=== PATIENT | male | born 1960 | race Caucasian/White ===

== ENCOUNTER 2016-11-15 10:51 | Inpatient (IN) | payer OTHER ==
[~2016-11-15] VITALS: Ht 172.7 cm; Wt 76.8 kg
[2016-11-15 11:09] VITALS: BP 126/83; PULSE 98; RESP 14; O2SAT 100
[2016-11-15 11:29] LABS: BASOPHILS % (AUTO) 0.1 % (0-3); EOSINOPHILS % (AUTO) 0.2 % (0-5); MONOCYTES % (AUTO) 1.9 % (4-12); Mean Corpuscular Hemoglobin 33.6 pg (27.0-35.0); Mean Corpuscular Volume 99.2 fL (81-100); Platelet Count 150 bil/L (150-400)
[2016-11-15 11:53] LABS: Magnesium 2.1 mg/dL (1.6-2.6)
--- NOTE | 2016-11-15 13:24 | ED.REPORT ---
HPI-Dizziness / Weakness Date of Service Nov 15, 2016 ED Provider: Clint HeCecilia Is a 56-year-old male was recently diagnosed with congestive heart failure who presents with a chief complaint of lower abdominal pain. His presenting complaint was preceded yesterday by 3 brief episodes of lightheaded, dizziness, sweatiness, and hypotension measured on a home device as low as 68/52. Patient attributes this to a new medication for his congestive heart failure. The patient reports this morning he got up off the toilet and felt a stabbing pain in the midline of his lower abdomen from approximately his umbilicus to part way down his penis. His sensation was accompanied by lightheadedness. States he has some mild right lower quadrant pains right now and reports a few incidents of diarrhea in the last week. Admits history of kidney stones, family history of abdominal aortic aneurysm, [id number] history of smoking. Denies chest pain, palpitations, dyspnea, wheezing, shortness of breath, urinary symptoms, back pain. Nursing Notes Stated Complaint: ABDOMINAL PAIN Chief Complaint: Male Abdominal Pain Nursing Notes Reviewed: Yes Allergies: Coded Allergies: codeine (Verified Adverse Reaction, Intermediate, Nausea, 11/15/16) General Time Seen by MD: 12:58 Chief Complaint Other (abdominal pain) Hx Obtained From: Patient Arrived By: Walk-in Onset Occurred: Yesterday Symptom Duration: Intermittent Location: : Abdomen Quality: Painful Severity: Current: Moderate Severity: Maximum: Moderate Recent Healthcare: No recent hospitalization Similar Sx Previous: No Past Medical History Past Medical History CHF, kidney stones Family History Abdominal aortic aneurysm Social History [id number] history of smoking Other Social History: Good social support, Local resident Ambulatory Status Independent Review of Systems Respiratory: Denies: Shortness of breath, Wheezing Cardiovascular: Denies: Chest pain GI: Reports: Abdominal pain, Diarrhea Skin: Reports Diaphoresis Neurologic: Reports: Dizziness, Lightheaded Complete sys rev & neg: except as marked. Male: Denies Dysuria, Denies Hematuria, Denies Urinary frequency, Denies Urinary urgency, Denies Urination decreased, Denies Urination increased Musculoskeletal: Denies: Back pain Physical Exam General: Well appearing, well developed, well nourished, no acute distress. Head: Atraumatic, normocephalic. Eyes: No scleral icterus or injection. No discharge. Vision grossly intact. ENT: Voice clear, hearing grossly intact. Respiratory: Regular rate and rhythm. Breath sounds present, clear to auscultation and equal bilaterally. Cardiovascular: Tachycardic at 110 bpm, regular rhythm, without murmur, gallop or rub. No pedal edema. Gastrointestinal: Abdomen flat and non-tender with voluntary guarding but no rebound. Bowel sounds normoactive. Skin: Warm and dry. Back: Normal to inspection, no CVA tenderness Lower extremities: No leg edema, unilateral swelling, calf tenderness, Homans sign Neurological: Grossly nonfocal. : Normal circumcised penis without tenderness, lesion or discharge. Testes descended bilaterally without mass or tenderness Psychological: Alert and oriented. Speech appropriate, linear and logical. Behavior appropriate. Initial Vital Signs Vital Signs (First) Date Time Temp Pulse Resp B/P Pulse Ox O2 Delivery O2 Flow Rate FiO2 11/15/16 11:09 36.8 98 14 126/83 100 11/15/16 13:45 Room Air Initial VS: Reviewed, Vital signs normal Interpretation & Diagnostics Lab Results Interpretation Result Diagram: 11/15/16 1117 11/15/16 1117 Test 11/15/16 11:17 11/15/16 13:55 White Blood Count 13.1th/mm3 (3.8-10.1) Red Blood Count 3.72mil/mm3 (4.40-5.80) Hemoglobin 12.5g/dL (13.8-17.2) Hematocrit 36.9% (41.0-50.0) Mean Corpuscular Volume 99.2fL (81-100) Mean Corpuscular Hemoglobin 33.6pg (27.0-35.0) Mean Corpuscular Hemoglobin Concent 33.9% (32.0-37.0) Red Cell Distribution Width 15.7% (12.3-15.4) Platelet Count 150bil/L (150-400) Neutrophils (%) (Auto) 91.0% (40-74) Lymphocytes (%) (Auto) 6.6% (14-46) Monocytes (%) (Auto) 1.9% (4-12) Eosinophils (%) (Auto) 0.2% (0-5) Basophils (%) (Auto) 0.1% (0-3) Sodium Level 136mEq/L (134-144) Potassium Level 4.1mEq/L (3.5-5.2) Chloride Level 98mEq/L (97-108) Carbon Dioxide Level 27mmol/L (18-29) Blood Urea Nitrogen 18mg/dL (6-24) Creatinine 0.97mg/dL (0.76-1.27) Estimat Glomerular Filtration Rate 85mL/min (>59) Glucose Level 123mg/dL (60-99) Lactic Acid Level 1.2mmol/L (0.4-2.0) Calcium Level 9.2mg/dL (8.5-10.1) Magnesium Level 2.1mg/dL (1.6-2.6) Total Bilirubin 1.5mg/dL (0.0-1.2) Aspartate Amino Transf (AST/SGOT) 9U/L (0-50) Alanine Aminotransferase (ALT/SGPT) 9U/L (0-44) Alkaline Phosphatase 67U/L (25-150) Troponin T < 0.010ug/L (0.0-0.011) Total Protein 6.9g/dL (6.4-8.4) Albumin 4.5g/dL (3.4-5.0) Lipase 17U/L (13-60) Hold Al Top Tube Received (Received) Urine Color Dark yellow (YELLOW) Urine Appearance Clear (CLEAR,HAZY) Urine pH 5.5 (5.0-8.0) Urine Specific [place] 1.025 (1.003-1.035) Urine Protein 30mg/dL (NEG,TRACE) Urine Glucose (UA) Negativemg/dL (NEGATIVE) Urine Ketones Negativemg/dL (NEGATIVE) Urine Occult Blood Negative (NEGATIVE) Urine Nitrite Negative (NEGATIVE) Urine Bilirubin Negative (NEGATIVE) Urine Urobilinogen Normalmg/dL (NORMAL) Urine Leukocyte Esterase Negative (NEGATIVE) Hold Urine Received (Received) X-Ray Chest Interpretation Chest Xray Interpretation: IMPRESSION: Mild scoliosis convex rightward, mildly reduced inspiratory volume, no acute disease. Dictated by: Skyler Avitia M.D. on 11/15/2016 at 14:12 Interpretation / Wet Read by: Interpret - Radiologist CT Abd / Pelvis Interpretation IMPRESSION: 1. Mild aneurysmal dilatation of the infrarenal abdominal aorta. Annual sonographic surveillance is recommended. No evidence of aortic dissection. 2. Incompletely visualized inflammatory process within the pelvis, possibly representing diverticulitis. There is a small amount of possible loculated pneumoperitoneum within the posterosuperior pelvis. Findings discussed with Letty on 11.15.16 at 1555 hrs. 3. Mildly distended small bowel loops and small bowel thickening, consistent with gastroenteritis versus ileus. 4. Splenic cyst. 5. 5 mm diameter lingular nodule; followup is recommended as below. Fleischner Society criteria for SOLID lung nodule followup. Nodule size (mm)Low-risk patientHigh-risk [id number] follow-up neededFollow-up at 12 mo; if no change, no further follow-up>7-8Bzqanf-rb CT at 12 mo; if no change, no further follow-up needed.Initial follow-up CT at 6-12 mo, then 18-24 mo if no change. >6-8Initial follow-up CT at 6-12 mo, then 18-24 mo if no change. Initial follow-up CT at 3-6 mo, then 9-12 mo and 24 mo if no change. >8Follow-up CT at 3, 9, 24 mo. Or PET and/or biopsy.Same as for low-risk pts. Dictated by: Jackie Lucero M.D. on 11/15/2016 at 16:02 Study type: Abdominal CT IV contrast Interpretation / Wet Read by: Interpret - Radiologist, Discussed w radiologist Re-Eval/Medical Decision Med Decision/Clinical Course Findings of diverticulitis with microperforation and sepsis clinically. Patient will be admitted. IV fluids given IV Zosyn given. Surgery consulted and will see the patient. Source of Hx: Old records, Family Re-Evaluation/Progress : Time of Eval: 16:27 Re-Evaluation/Progress Note: Gonzalo Manriquez rechecked the patient after assuming care from Clint WILSON Discussed CT results, diagnosis, and plan for admission. Consultation : Referral / Consult Name: Madhav Mcdonald MD [employer]: Accepts admit Counseled Regarding: Diagnosis, Lab results, Need for admission Patient Discharge & Departure Impression: Primary Impression: Diverticulitis Disposition: ADMITTED TO HOSPITAL Discharge Condition All VS Reviewed: Yes Condition: Stable Referrals: NOPCP (PCP) Scribe Attestation Portions of this note were transcribed by Abbi Guillen. I, Dr. O'Miroslava personally performed the history, physical exam and medical decision-making; I reviewed and confirmed the accuracy of the information in the transcribed note. Signed by: Hyacinth Rubin, 11/15/2016 and 1830. Clint He PA-C Nov 15, 2016 13:24 Abbi Guillen Nov 15, 2016 16:31 Topher Manriquez DO Nov 15, 2016 19:42
[2016-11-15 13:45] VITALS: BP 121/75; PULSE 107; RESP 20; O2SAT 96
[2016-11-15] MEDS ORDERED: 0.9% Sodium Chloride 1,000 ML IV ONE (14:10)
--- NOTE | 2016-11-15 14:14 | DRSVH ---
PROCEDURE: X-RAY CHEST ONE VIEW, PORTABLE ([id number]) INDICATIONS: presyncope TECHNIQUE: One view of the chest was acquired. COMPARISON: [facility], CR, XR CHEST 2VW, 10/12/2016, 14:00. FINDINGS: Surgical changes and devices: None. Lungs and pleura: No pleural effusions or pneumothorax. Lungs are clear. Mediastinum: Mediastinal contours appear normal. Heart size is normal. Bones and chest wall: No suspicious bony lesions. Overlying soft tissues appear unremarkable. IMPRESSION: Mild scoliosis convex rightward, mildly reduced inspiratory volume, no acute disease. Dictated by: Skyler Avitia M.D. on 11/15/2016 at 14:12 Approved by: Skyler Avitia M.D. on 11/15/2016 at 14:12
--- NOTE | 2016-11-15 16:04 | DRSVH ---
PROCEDURE: CT ANG CHEST/ABD W/WO CONTRAST ([id number]) INDICATIONS: abdominal pain, dizziness, smoking history, TECHNIQUE: Precontrast 5 mm thick sections acquired from the lung apices to the iliac crests. After the adminis tration of intravenous contrast, 3 mm thick sections again acquired from the lung apices to the iliac crests. 3-dimensional maximum intensity projection (MIP) oblique sagittal and coronal reformats wer e then acquired, and/or 3-dimensional volume rendering reformats. For radiation dose reduction, the following was used: automated exposure control. COMPARISON: None. FINDINGS: Image quality: Excellent. AORTA: Thoracic aorta is normal in caliber, with no evidence of aneurysm, dissection, nor stenosis. There is mild fusiform aneurysmal dilatation of the infrarenal abdominal aorta measuring 30 mm. No evidence o f abdominal aortic dissection, nor stenosis. CHEST: Lungs and pleura: No acute airspace opacities. Mild dependent atelectasis is present within the bila teral lower lobes. 5 mm diameter nodule within the lateral lingula. No pleural effusions or pneumoth orax. Central and peripheral airways are patent and normal in caliber. Mediastinum: Heart size is enlarged. There is calcification of the coronary vasculature. No pericard ial effusion. No mediastinal or hilar adenopathy by size criteria. Central pulmonary arteries are n ormal in size. Esophagus is normal in caliber. No hiatal hernias. Bones and chest wall: No axillary adenopathy by size criteria. Thyroid gland is within normal limit s as visualized.. No suspicious bony lesions. No vertebral body compression fractures. ABDOMEN: Vasculature: Celiac trunk and mesenteric arteries are patent. Renal arteries are also patent. Solid organs: Liver and spleen are normal in size. There is a partially calcified 48 mm diameter spl enic cyst present. Gallbladder is within normal limits. Biliary system is non dilated. Pancreas enh ances normally. No adrenal nodules. Both kidneys are normal in size and enhancement, without hydron ephrosis. Peritoneum and bowel: Stomach is within normal limits. Multiple fluid filled loops of small bowel are present, which appear mildly thickened. Appendix is normal. Visualized portions of the colon are nor mal in caliber. There is diverticulosis of the descending and visualized sigmoid colon. There is thic kening of the visualized portions of the proximal sigmoid colon. Fat stranding within the central mes entery of the visualized upper pelvis is present. There is a possible small amount of loculated pneum operitoneum seen within the central posterior pelvis. Nodes and vessels: No retroperitoneal or mesenteric adenopathy by size criteria. Inferior vena cava is normal in morphology. Bones: No suspicious bony lesions. No vertebral body compression fractures. Miscellaneous: No ventral hernias. IMPRESSION: 1. Mild aneurysmal dilatation of the infrarenal abdominal aorta. Annual sonographic surveillance is r ecommended. No evidence of aortic dissection. 2. Incompletely visualized inflammatory process within the pelvis, possibly representing diverticulit is. There is a small amount of possible loculated pneumoperitoneum within the posterosuperior pelvis. Findings discussed with Letty on 11.15.16 at 1555 hrs. 3. Mildly distended small bowel loops and small bowel thickening, consistent with gastroenteritis marta inna ileus. 4. Splenic cyst. 5. 5 mm diameter lingular nodule; followup is recommended as below. Fleischner Society criteria for SOLID lung nodule followup. Nodule size (mm)Low-risk patientHigh-risk [id number] follow-up neededFollow-up at 12 mo; if no bueno e, no further follow-up>[id number] CT at 12 mo; if no change, no further follow-up needed.Initial f ollow-up CT at 6-12 mo, then 18-24 mo if no change. >6-8Initial follow-up CT at 6-12 mo, then 18-24 mo if no change. Initial follow-up CT at 3-6 mo, then 9-12 mo and 24 mo if no change. >8Follow-up CT at 3, 9, 24 mo. Or PET and/or biopsy.Same as for low-risk pts. Dictated by: Jackie Lucero M.D. on 11/15/2016 at 16:02 Approved by: Jackie Lucero M.D. on 11/15/2016 at 16:02
[2016-11-15] MEDS: 0.9% Sodium Chloride 1,000 ML IV SCH ×2 (16:25→19:10)
[2016-11-15] MEDS ORDERED: 0.9% Sodium Chloride 500 ML IV ONE (16:35)
[2016-11-15] MEDS ORDERED: Piperacillin-Tazo 3.375 Gm Inj 3.375 GM in Dextrose 5% Minibag Plus 50 ML IV ONE (16:35)
[2016-11-15] MEDS: Ondansetron 2 mg/mL 2 mL Inj IVPUSH PRN ×2 (16:46→22:54)
[2016-11-15 17:02] LABS: APPEARANCE,URINE CLEAR (CLEAR,HAZY); COLOR,URINE DARK YELLOW (YELLOW); PH,URINE 5.5 (5.0-8.0)
[2016-11-15 17:03] LABS: OCCULT BLOOD,URINE NEGATIVE (NEGATIVE); UROBILINOGEN,URINE NORMAL (NORMAL)
[2016-11-15] MEDS ORDERED: Iohexol 300 mg/mL 30 mL Inj PO ONE (17:15)
[2016-11-15 18:30] VITALS: PULSE 104; RESP 19; O2SAT 97
--- NOTE | 2016-11-15 18:47 | DRSVH ---
PROCEDURE: CT ABDOMEN AND PELVIS WITHOUT CONTRAST ([id number]) INDICATIONS: abdominal pain TECHNIQUE: After the administration of oral contrast, 5 mm thick sections acquired from the diaphragms to the sy mphysis. 5 mm coronal and sagittal reformats were performed. For radiation dose reduction, the foll owing was used: automated exposure control, adjustment of mA and/or kV according to patient size. COMPARISON: [facility], CT, CT ANGIO CHEST ABD, 11/15/2016, 15:13. FINDINGS: Image quality: Excellent. ABDOMEN: Lung bases: Lung bases are clear. There is a minimal amount of subsegmental atelectasis in the lung bases Heart size is normal. Solid organs: Liver and spleen are normal in size. There is a 5 cm peripherally calcified cyst in th e spleen. Gallbladder is within normal limits.. Pancreas is normal in size. No adrenal nodules. Joel th kidneys are normal in size, without hydronephrosis or nephrolithiasis. Peritoneum and bowel: Bowel loops down to the pelvis are considered normal. In the pelvis there are d iverticula. There is stranding. There is involvement of portion of small bowel adjacent to this are o riginated from small bowel and involving sigmoid colon with diverticula. There is extraluminal air th at is loculated in the inflammatory process. Nodes and vessels: No retroperitoneal or mesenteric adenopathy by size criteria. Aorta and inferior vena cava are normal in size. Miscellaneous: No ventral hernias. PELVIS: Genitourinary: Bladder wall thickness is normal. There is prominent prostate enlargement. Miscellaneous: No inguinal hernias or adenopathy. Bones: No suspicious bony lesions. No vertebral body compression fractures. IMPRESSION: Inflammatory process in the upper central pelvis. Most likely this is diverticulitis with inflammation involving small bowel loops. There is extraluminal air and no free air. Extraluminal air is loculated within the inflammatory proc ess. At this point bowel obstruction is not appreciated. Dictated by: Cliff Blackwell M.D. on 11/15/2016 at 18:45 findings were relayed to the clinician. Approved by: Cliff Blackwell M.D. on 11/15/2016 at 18:45
[2016-11-15] MEDS ORDERED: Alum-Mag Hydrox-Simeth 30 mL Suspension PO PRN (19:10)
[2016-11-15] MEDS ORDERED: Ondansetron 2 mg/mL 2 mL Inj IVPUSH PRN (19:10)
[2016-11-15 19:45] VITALS: BP 99/66; PULSE 95; RESP 21; O2SAT 92
--- NOTE | 2016-11-15 20:14 | PCM.HPMED ---
Subjective Date of Service Nov 15, 2016 Primary Provider: Admitting Physician: Primary Care Physician: Deysi Attending Physician: Chief Complaint: Lower abdominal pain HISTORY was OBTAINED FROM PATIENT / MEDITECH NOTES History of present illness 56-year-old male with stabbing midline lower abdominal pain monday, may have started w/spirolactone, worse this am, associated diarrhea, with lightheadedness and hypotension yesterday 68/52 at home. Recent new medications for CHF. Diarrhea last week associated with right lower quadrant pains. entresto new yesterday caused him lightheadness. chills and cold sweats yesterday. no colonoscopy hx. no bloody stool. baseline at home 130s/90s. currently dull ache midline lower abdominal pain radiates to RLQ. associated near syncope. In the ER, T 38.1, HR 107, WBC 13, Zosyn morphine 2 L normal saline Review of Systems - none of the following - sick contact / wt change/ BARONE / lightheaded / dizziness / sob / cough / cp / bleeding/bruising / change in voiding / yeast infections / rash recent leg swelling since 10/10/2016 improved FAMILY HX AAA, HTN, no diverticulitis SOCIAL HX smoking 1ppd MEDICATIONS coreg lasix losartan spironolactone entresto doesn't take asa often - makes him vomit and causes acid reflux ranitidine Past Medical/Surgical HX Kidney stones AAA 3 cm CHF HTN Allergies Coded Allergies: codeine (Verified Adverse Reaction, Intermediate, Nausea, 11/15/16) Exam Vital Signs Vital Sign - Last Date Time Temp Pulse Resp B/P Pulse Ox O2 Delivery O2 Flow Rate FiO2 11/15/16 13:45 38.1 107 20 121/75 96 Room Air Lab and Diagnostics Labs Exam on admission NAD A and O x 3 mood affect WNL NC/AT no icterus no injected eyes EOMI PERRL /no pharyngeal lesions/ no oral lesions / hearing intact Supple neck CTAB equal chest rise / no accessory muscle use / speaks in full sentences / no rrw RRR S1 S2 / no mrg / 2+ radial pulses Soft nt nd + BS no hepatosplenomegaly No edema no cyanosis no ecchymosis of lower extremities No rash / no jaundice SHERMAN CNII-XII grossly intact symmetrical No dysmetria of bilateral upper and lower limbs /no asterixis/ Strength grossly intact of bilateral upper and lower limbs Sensation grossly symmetrical of bilateral upper and lower limbs EKG QTC UA negative LFT bili 1.3 CT C/a/p ABDOMEN: Lung bases: Lung bases are clear. There is a minimal amount of subsegmental atelectasis in the lung bases Heart size is normal. Solid organs: Liver and spleen are normal in size. There is a 5 cm peripherally calcified cyst in the spleen. Gallbladder is within normal limits.. Pancreas is normal in size. No adrenal nodules. Both kidneys are normal in size, without hydronephrosis or nephrolithiasis. AORTA: Thoracic aorta is normal in caliber, with no evidence of aneurysm, dissection, nor stenosis. There is mild fusiform aneurysmal dilatation of the infrarenal abdominal aorta measuring 30 mm. No evidence of abdominal aortic dissection, nor stenosis. CHEST: Lungs and pleura: No acute airspace opacities. Mild dependent atelectasis is present within the bilateral lower lobes. 5 mm diameter nodule within the lateral lingula. No pleural effusions or pneumothorax. Central and peripheral airways are patent and normal in caliber. Mediastinum: Heart size is enlarged. There is calcification of the coronary vasculature. No pericardial effusion. No mediastinal or hilar adenopathy by size criteria. Central pulmonary arteries are normal in size. Esophagus is normal in caliber. No hiatal hernias. Bones and chest wall: No axillary adenopathy by size criteria. Thyroid gland is within normal limits as visualized.. No suspicious bony lesions. No vertebral body compression fractures. Peritoneum and bowel: Bowel loops down to the pelvis are considered normal. In the pelvis there are diverticula. There is stranding. There is involvement of portion of small bowel adjacent to this are originated from small bowel and involving sigmoid colon with diverticula. There is extraluminal air that is loculated in the inflammatory process. Nodes and vessels: No retroperitoneal or mesenteric adenopathy by size criteria. Aorta and inferior vena cava are normal in size. Miscellaneous: No ventral hernias. PELVIS: Genitourinary: Bladder wall thickness is normal. There is prominent prostate enlargement. Miscellaneous: No inguinal hernias or adenopathy. Bones: No suspicious bony lesions. No vertebral body compression fractures. IMPRESSION: Inflammatory process in the upper central pelvis. Most likely this is diverticulitis with inflammation involving small bowel loops. There is extraluminal air and no free air. Extraluminal air is loculated within the inflammatory process. At this point bowel obstruction is not appreciated. Echo 11/10/2016 The left ventricle is severely dilated. Left ventricular systolic function is severely reduced. The ejection fraction is estimated to be 20-25%. There is severe global hypokinesis of the left ventricle. Assessment of diastolic parameters suggests a pseudonormalization pattern, consistent with elevated filling pressures. The right ventricle is normal in size and function. The right ventricular systolic pressure is estimated at 30 mmHg assuming a right atrial pressure of 3 mm Hg. The left atrium is severely dilated. The right atrium is mildly dilated. There is mild aortic regurgitation. There is no other significant valvular heart disease. The aortic root is mildly dilated. The ascending aorta is mildly enlarged. The aortic arch is at the upper limits of normal in size. Result Diagram: 11/15/16 1117 11/15/161116 Assessment & Plan Active issues and reason for admission Sepsis due to microperforation lower abdominal, complicated by new BP lowering CHF medications -- Zosyn -- Dr. 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 Madhav Mcdonald MD Nov 15, 2016 20:14
[2016-11-15 20:45] VITALS: BP 97/59; PULSE 101; RESP 23; O2SAT 95
[2016-11-15 21:45] VITALS: BP 98/57; PULSE 92; RESP 21; O2SAT 91
[2016-11-16] VITALS (7 sets, daily range): BP systolic 108–129; BP diastolic 66–83; PULSE 91–112; RESP 16–22; O2SAT 93–97
[2016-11-16] MEDS ORDERED: Polyethylene Glycol (PEG) 17 Gm Powder PO PRN (01:20)
[2016-11-16] MEDS: 0.9% Sodium Chloride 1,000 ML IV SCH ×3 (02:00→11:32)
[2016-11-16] MEDS: Piperacillin-Tazo 3.375 Gm Inj 3.375 GM in Dextrose 5% Minibag Plus 50 ML IV SCH ×3 (02:00→17:28)
--- NOTE | 2016-11-16 06:00 | NUR ---
Admit note Pt admitted to ER # B an inpatient status. Admission assessment and screening completed. VSS. POC reviewed and discussed with pt and he verbalizes understating. Pt is appropriate and cooperative with care. Pt is NPO status. No overt complications noted.
--- NOTE | 2016-11-16 07:07 | CONS ---
[address] [address] CONSULTATION REPORT PATIENT: DIANNA ROSEN : 1960 MR#: [id number] ADMIT: 11/16/2016 JOB ID: [id number] DATE OF SERVICE: 11/16/2016 CHIEF COMPLAINT: Diverticulitis. HISTORY OF PRESENT ILLNESS: The patient is a 56-year-old male who presented to the emergency department Monday evening due to abdominal pain. The pain started last Monday, which is approximately three days ago. He developed lower abdominal sensitivity and discomfort. It was in the lower abdomen below the navel on both sides, and the right side is worse than the left. The sensitivity or discomfort persisted and got acutely worse this morning. He had diarrhea followed by a shooting pain described as someone stabbing his gut. This is associated with some nausea but no vomiting. He has been having some cold sweats. He has never had this type of discomfort before. He has never had a colonoscopy before. Workup in the emergency department today included a CT scan that suggests acute diverticulitis with possible microperforation with some involvement of portions of small bowel. He was also noted to have an infrarenal AAA. He does have a family history of AAA as well. PAST MEDICAL HISTORY: 1. CHF. His general doc is Dr. Guzmán. 2. Sinus surgery. 3. Tonsillectomy. 4. Acid reflux. 5. Infrarenal AAA. MEDICATIONS AT HOME: Include ranitidine and spironolactone. ALLERGIES: CODEINE. SOCIAL HISTORY: The patient is single. He lives [place] of [place]. He has one daughter. He is retired. He is a smoker. 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 FAMILY HISTORY: Positive for AAA and hypertension. REVIEW OF SYSTEMS: Positive for the lower abdominal pain that is worse on the right side, cold sweats, diarrhea. All other systems reviewed were negative. PHYSICAL EXAMINATION: The patient is currently on the emergency department [facility] waiting for a hospital bed. BMI is 26.7, Temp 37.1, blood pressure 98/57, pulse is 92, respirations 21. He did have a temperature of 38.1 earlier in the day. Head is normocephalic, atraumatic. There is no scleral icterus. Neck is supple. Heart is regular rate. Lungs are clear bilaterally. Abdomen is mildly protuberant. It is soft in the upper quadrants. It is rather benign on the left lower quadrant, however, there is more mild to moderate tenderness in the right lower quadrant below the level of the umbilicus. The right side is definitely more tender than the left. Extremities show no clubbing and no cyanosis. Neurologically, patient is awake, alert, conversant, and answers appropriately. LABORATORY EXAMINATION: Yesterday did show a white blood count of 13.1, hematocrit 36.9, platelet count is 150. Sodium is 136, potassium 4.1, creatinine 0.97, total bilirubin of 1.5. Lipase of 17. ASSESSMENT: This is a 56-year-old male with first episode of diverticulitis with microperforation. The patient has never had a colonoscopy before. He's a smoker. The patient has been started on Zosyn at this time. I anticipate that the patient's symptoms will improve gradually with IV antibiotic therapy. I do not anticipate need for surgical intervention at this time. Once the patient improves and is discharged, he should follow up with the Gastroenterology service in approximately 1-2 months to have a diagnostic colonoscopy. We will follow the patient along with you while he is in house. He should stop smoking. We will talk with the pt about participation in the DEBUT deverticulitis study. SUNSHINE
[2016-11-16] MEDS ORDERED: Pantoprazole 40 mg ER24 Tablet PO SCH (07:30)
[2016-11-16 08:48] LABS: BASOPHILS % (AUTO) 0.1 % (0-3); EOSINOPHILS % (AUTO) 0.7 % (0-5); MONOCYTES % (AUTO) 2.7 % (4-12); Mean Corpuscular Hemoglobin 33.2 pg (27.0-35.0); Mean Corpuscular Volume 99.7 fL (81-100); NEUTROPHILS % (AUTO) 92.6 % (40-74); Platelet Count 115 bil/L (150-400)
--- NOTE | 2016-11-16 10:58 | PCM.PNSURG ---
Subjective Date of Service: Nov 16, 2016 Visit Information: Reason for Visit Diverticulitis Sepsis Chf Surgery/Surgery Date Post-Op Day # Date of Admission: Nov 16, 2016 at 00:51 Hospital Day #2 Subjective: Very little pain today since initiation of IV antibiotics yesterday. Oral Tylenol effective for pain control this morning. Passing flatus but has not had a bowel movement. Drinking liquids with no nausea or vomiting, requesting food. Ambulatory in the hallway without assistance. Postop General: No Complaints Gastrointestinal: Good Appetite, Tolerating Oral Feedings, No N/V, Passing Flatus Pain Management: PO Postop Activity: Ambulating Independently Objective Vital Sign- Last 8 Hours Date Time Temp Pulse Resp B/P Pulse Ox O2 Delivery O2 Flow Rate FiO2 11/16/16 07:40 37.6 96 16 108/66 94 Room Air 11/16/16 05:16 37.7 112 22 113/76 95 Room Air Intake and Output- Last 8 Hour 11/16/16 Cumulative From/Thru 07:00 11/15/16 11:09 - 11/16/16 06:44 Intake Total 0 ml 1000 ml Balance 0 ml 1000 ml Intake Oral 0 ml 0 ml IV Total 1000 ml # Voids 2 2 General: Alert, Cooperative, No Acute Distress Lungs: Clear to Auscultation Heart: Regular Rate/Rhythm Abdomen: Soft, Non-tender, Non-distended, No masses Neuro: Normal Speech Catheters: None Result Diagram: 11/16/16 0830 11/16/16 0830 Assessment & Plan Impression Primary diagnosis: Diverticulitis. HD #2, improving on IV antibiotics. Other diagnoses: 1. Kidney stones 2. AAA 3 cm 3. CHF 4. HTN 5. Daily cigarette smoker Problems: Plan This patient was seen with the resident from the hospitalist service. He will initiate a full liquid diet and advance to soft diet with anticipation that the patient will likely be stable for discharge on oral antibiotics tomorrow. Pain Management: Oral Tylenol VTE Prophylaxis: Sub-Q Enoxaparin Resuscitation Status: CPR: Attempt Resuscitation Elmer Toth PA-C Nov 16, 2016 10:58
[2016-11-16] MEDS ORDERED: LOSA50TA37 PO (11:27)
[2016-11-16] MEDS ORDERED: CARV6.252 PO (11:27)
[2016-11-16] MEDS ORDERED: FURO40SO4 PO (11:27)
--- NOTE | 2016-11-16 11:55 | NUR ---
Med Rec: Medication reconciliation completed per pt verbal list of home medications and verified with [facility] pharmacy over the phone.
--- NOTE | 2016-11-16 13:24 | PCM.PNMED ---
Subjective Date of Service Nov 16, 2016 Subjective No new complaints. Patient reports lots of gas. Had 1 bowel movement today. Minimal uses of morphine. He denies any SOB, CP, fevers,chills. Exam Vital Signs Vital Sign - Last Date Time Temp Pulse Resp B/P Pulse Ox O2 Delivery O2 Flow Rate FiO2 11/16/16 11:20 110 11/16/16 07:40 37.6 16 108/66 94 Room Air Intake and Output 11/15/16 11/15/16 11/16/16 Cumulative From/Thru 15:00 23:00 07:00 11/15/16 11:09 - 11/16/16 06:44 Intake Total 1000 ml 0 ml 1000 ml Balance 1000 ml 0 ml 1000 ml Intake Oral 0 ml 0 ml IV Total 1000 ml 1000 ml # Voids 2 2 Exam General: No acute distress, well-developed, well-nourished, appropriately interactive HEENT: Normocephalic, atraumatic.Pupils equal, round, and reactive to light and accommodation. Anicteric sclerae, moist conjunctivae, and no lid lag. Neck: Supple with full range of motion. No jugular venous distension. No bruits. Cardiovascular: Regular rate and rhythm with no murmurs, rubs, or gallops appreciated Pulmonary: Clear to auscultation bilaterally with no crackles, wheezes, or rhonchi. Normal respiratory effort with no use of accessory muscles. Abdomen: Bowel tones present. Soft, mildly tender, nondistended. No hepatosplenomegaly or masses appreciated. Extremities: No clubbing, cyanosis, edema, or lymphadenopathy appreciated. Skin: Normal temperature, turgor, and texture; no rash, ulcers, or subcutaneous nodules appreciated. Neurological: Cranial nerves grossly intact. Normal muscle strength, tone, and bulk. Psychiatric: Normal mood and affect. Alert and oriented to person, place, and time. IVs and Medications Medications Reviewed: Medications were reviewed in detail Lab and Diagnostics Result Diagram: 11/16/1682911/16/16829 Assessment & Plan 56yom with MHx significant for HTN and CHF developed 3days of worsening lower quadrant abdominal pain, hypotension with diarrhea, found to have diverticulitis with possible microperforation. He was admitted for sepsis. Sepsis due to microperforation lower abdominal. resolved - Tachycardic with elevated temp and WBC, likely diverticulitis - Fluid resuscitate and abx given. Lactic acid essentially normal. - Resolved at this point. Diverticulitis microperforation, present on admission, improving - Currently on Zosyn, will transition to Flagyl and and Levaquin on 11/17 - Concerns for abscess formation. consider discharge 11/18. - surgery is following - pain control with morphine Hypotension, present on admission, active - Multifactorial: multiple new CHF medications, dehydration. - Hold Lasix/spirolactone/coreg - IV fluids Heart failure with Reduced EF, present on admission, stable - Recent EF 25% - Recently started spironolactone, in addition to taking carvedilol, losartan, and lasix. This may contribute to hypotension - Conservative with fluids. Received ~2-3L fluids for sepsis - Will reconsider meds if SBP maintains >110 AAA 3 cm infrarenal, present on admission, stable - Incidental finding on CT. - Recommend follow-up with PCP Smoker, present on admission, stable - Nicotine patch Dyspepsia, present on admission, stable - Famotidine Disposition inpatient: Concerns for intraabdominal abscess, will observe will . VTE Prophylaxis: Sub-Q Enoxaparin Resuscitation Status: CPR: Attempt Resuscitation Attending Statement The patient was seen and examined together with Dr. Orestes Delgado on 11/16/2016 and I agree with the history, exam and plan as outlined in the note above. Orestes Delgado DO Nov 16, 2016 13:24 Rocky Diaz MD Nov 17, 2016 13:47
--- NOTE | 2016-11-16 14:16 | NUR ---
Social Work: Screening Data: Pt is a 56 y/o male admitted for diverticulitis sepsis CHF. Pt's PCP is no listed, pt's insurance is [facility]. EMR reviewed. [facility] will continue to follow for possible HH need due to CHF. [facility] will continue to follow. Assessment: Pt who is independent at baseline. Plan: Pt will d/c home via POV when medically stable. [facility] will continue to follow for possible HH need due to CHF. [facility] will continue to follow. NANCY Tavera
--- NOTE | 2016-11-16 18:20 | NUR ---
Abdominal pain patient's abdominal pain has been better controlled today, per patient report. he's rated RLQ pain 3-4/10 today, describing it as an ache. no BM during day shift. patient received one dose of tylenol PO that wasn't that effective. 2 mg IV morphine x1 dose this afternoon was effective to controlling his discomfort. patient has been up ambulating in [place] with daughter several times today, tolerating well. continue to monitor for any changes and encourage increased mobility and oral hydration.
[2016-11-17] VITALS (7 sets, daily range): BP systolic 133–139; BP diastolic 84–94; PULSE 84–98; RESP 18; O2SAT 98–100
[2016-11-17] MEDS: Piperacillin-Tazo 3.375 Gm Inj 3.375 GM in Dextrose 5% Minibag Plus 50 ML IV SCH (01:35)
--- NOTE | 2016-11-17 04:57 | NUR ---
Mild fever/Pain pt T 38.1 and 38.2 by two thermometers. administered PO Tylenol. 1hr and 3 hrs after Tylenol, T 37.7 and 37.3. c/o 4/10 mild RLQ pain. administered PO Tylenol. Pt report pain relief on rate of 2/10. ABX administered as ordered. Bed is locked and in low position. call light within reach. will continue to monitor.
[2016-11-17 06:16] LABS: Mean Corpuscular Hemoglobin 33.1 pg (27.0-35.0); Mean Corpuscular Volume 98.3 fL (81-100)
[2016-11-17] MEDS: 0.9% Sodium Chloride 1,000 ML IV SCH (06:34)
--- NOTE | 2016-11-17 08:25 | PCM.PNSURG ---
Subjective Visit Information: Reason for Visit Diverticulitis Sepsis Chf Surgery/Surgery Date Post-Op Day # Date of Admission: Nov 16, 2016 at 00:51 Hospital Day # Subjective: no issues overnight, R side abd pain much improved, tolerating clears, passing flatus and BM, wants to go home Objective Objective Arousable in bed Abd: nondistended, soft, almost no tenderness on palpation Vital Sign- Last 8 Hours Date Time Temp Pulse Resp B/P Pulse Ox O2 Delivery O2 Flow Rate FiO2 11/17/16 08:00 84 11/17/16 04:50 98 11/17/16 04:00 37.1 98 18 135/84 98 Room Air Intake and Output- Last 8 Hour 11/17/16 Cumulative From/Thru 07:00 11/15/16 11:09 - 11/17/16 06:21 Intake Total 509 ml 2912 ml Output Total 1000 ml 1600 ml Balance -491 ml 1312 ml Intake Oral 360 ml 960 ml IV Total 149 ml 1952 ml Output Urine Total 1000 ml 1600 ml # Voids 3 # Bowel Movements 0 0 Result Diagram: 11/17/1617 11/17/1617 Assessment & Plan Impression Acute diverticulitis, improving Smoker Problems: Plan Advance diet If discharged --> recommend po abx Need to f/u with GI in 1-2 months for a colonoscopy VTE Prophylaxis: Sub-Q Enoxaparin Resuscitation Status: CPR: Attempt Resuscitation Joel Joseph MD Nov 17, 2016 08:25
--- NOTE | 2016-11-17 09:37 | NUR ---
Antibiotic Clarification Contacted Dr. Dodd with the following cook page: Patient stated he was told he would be starting oral antibiotics for possible discharge soon. Please advise. Thank you. Erica PATEL
--- NOTE | 2016-11-17 10:46 | NUR ---
Morning Rounds Met with Dr. Dodd, social work and case management to staff patient case. Dr. Dodd stated patient starting on oral antibiotics and will likely discharge tomorrow.
[2016-11-17] MEDS: levoFLOXacin 500 mg Tablet PO SCH (16:03)
--- NOTE | 2016-11-17 17:51 | CONS ---
[address] [address] CONSULTATION REPORT PATIENT: DIANNA ROSEN : 1960 MR#: [id number] ADMIT: 11/16/2016 JOB ID: [id number] DATE OF SERVICE: 11/17/[address] Delgado for this timely consult. REASON FOR CONSULTATION: Diverticulitis. HISTORY OF PRESENT ILLNESS: The patient is a 56-year-old gentleman with a recent diagnosis of severe congestive heart failure which is thought to be on the basis of perhaps hypertension. In any event, his heart failure was improving considerably under cardiology management until a couple of days ago when he developed the acute onset of severe midline lower abdominal pain. This was associated with a minimal fever, no chills, no sweats and some nausea. There was no vomiting or diarrhea. There was no associated pulmonary or GI symptoms. The patient sought evaluation here and both by physical and by imaging was felt to have diverticulitis. He was not felt to be a surgical candidate as it was not that severe, and he was started on Zosyn as an empiric and appropriate IV agent. After a couple of days of Zosyn, his symptoms have essentially resolved and he has been transitioned to oral therapy with levofloxacin and Flagyl. ID is consulted regarding appropriate management of outpatient diverticulitis with oral antibiotics. 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 2. Hypertension. 3. Small AAA. SOCIAL HISTORY: The patient smokes cigarettes on an ongoing basis. He drinks alcohol rarely. He recently at least temporarily retired from his job in [place] and is staying in [facility] with a relative who owns some land. FAMILY HISTORY: Family history is relevant for abdominal aneurysms as well as congestive heart failure. REVIEW OF SYSTEMS: Was done. No significant headache. He did have a mild sore throat that resolved. No intraoral or eye complaints. No cough, shortness of breath or chest pain. He reports his breathing is much improved since the initiation of therapy for his severe congestive failure. At this point, he has basically no abdominal pain, nausea, vomiting or diarrhea. He is eating regular food again. No genitourinary complaints. The swelling of his legs has also resolved. PHYSICAL EXAMINATION: Reveals an afebrile gentleman, in no acute distress. Temp 36.6, pulse 96, respiratory rate 18, blood pressure 136/90, saturating well on room air. He is awake, alert, and very talkative, oriented x3. Head without trauma. Eyes without conjunctivitis. Oral cavity without thrush or pharyngitis. Neck is supple. Lungs clear. Cardiac tones: Regular rate and rhythm without murmur. Abdomen is slightly distended, but soft and nontender without any abnormalities whatsoever and does not have a Allen catheter. He has no significant remaining edema of his lower extremities. Joints without synovitis. Neurologic exam: Nonfocal. LABORATORIES: Include white count 6000, platelet count 115,000. Creatinine 0.79. Urinalysis negative. Micro studies: Negative blood cultures. IMAGING: Includes initial CT scan of the chest and abdomen. It shows mild aneurysmal dilatation of the inferior renal abdominal aorta and also evidence of diverticulitis with some loculated pneumoperitoneum. A splenic cyst is also seen as is a small lingular lymph node. A second CT scan was also done which shows inflammatory process in the upper central pelvis which the radiologist felt was most likely diverticulitis. There is extraluminal air located within the inflammatory process itself but no free intraperitoneal air. IMPRESSION: This patient has a relatively classic presentation for diverticulitis. It does not appear that he requires surgery or drainage at this point, and has improved very rapidly on Zosyn. I agree with the team's choices of oral levofloxacin and Flagyl for discharge meds. This is still a popular way to treat diverticulitis though increasing resistance among enteric gram negatives to the quinolones makes it a little less optimal than it was 10 years ago but, nonetheless, this is a reasonable outpatient regimen for diverticulitis. Another approach would be to give him high doses of oral Augmentin or perhaps even once a day ertapenem as an outpatient infusion in the [facility] [place] but I think in this case given his rapid improvement, levo and Flagyl is likely to be a good choice. The only other abnormality of interest here is his chronically low platelet count. It seems reasonable to check an human immunodeficiency virus on this 56-year-old patient is well as hepatitis C as these should be checked basically on all admissions who are not known to our system and do not have negatives in the computer. RECOMMENDATIONS: 1. I would check an HIV and hepatitis C. 2. The patient should have his platelet count followed as an outpatient. 3. Levo 750 once a day plus Flagyl 500 p.o. b.i.d. is probably adequate for this infection, and I would treat for a total of and seven days additional to complete approximately 10 days of total therapy. Note that ID will be signing off as I do not see any other active issues on this patient who is probably ready for discharge.
[2016-11-18 01:22] VITALS: BP 134/85; PULSE 82; RESP 18; O2SAT 98
[2016-11-18] MEDS: 0.9% Sodium Chloride 1,000 ML IV SCH (02:34)
[2016-11-18 05:36] VITALS: PULSE 97
[2016-11-18 05:37] VITALS: BP 137/86; PULSE 85; RESP 16; O2SAT 97
--- NOTE | 2016-11-18 06:24 | NUR ---
Pain Pt has only rated pain as 1/10. Did take tylenol to be able to get to sleep better. During morning walk around the unit he states his pain as 0/10 pain as he palpated him RLQ and LLQ of his abdomen.
[2016-11-18] MEDS: levoFLOXacin 500 mg Tablet PO SCH (06:45)
[2016-11-18 08:00] VITALS: PULSE 98
--- NOTE | 2016-11-18 09:44 | PCM.PNSURG ---
Subjective Date of Service: Nov 18, 2016 Date of Service: Nov 18, 2016 Visit Information: Reason for Visit: Diverticulitis Sepsis Chf Surgery/Surgery Date Post-Op Day # Date of Admission: Nov 16, 2016 at 00:51 Hospital Day # Subjective: The patient is seen sitting up in bed eating breakfast potatoes and sausage tolerating well. Denies any pain or abdominal discomfort. Passing flatus, has not had a bowel movement. Feels he is ready for discharge to home Postop General: No Complaints Gastrointestinal: Tolerating Oral Feedings, Passing Flatus Pain Management: PO Postop Activity: Ambulating Independently Objective Vital Sign- Last 8 Hours Date Time Temp Pulse Resp B/P Pulse Ox O2 Delivery O2 Flow Rate FiO2 11/18/16 08:00 98 11/18/16 05:37 36.4 85 16 137/86 97 Room Air 11/18/16 05:36 97 Intake and Output- Last 8 Hour 11/18/16 Cumulative From/Thru 07:00 11/15/16 11:09 - 11/18/16 06:16 Intake Total 400 ml 5457 ml Output Total 1200 ml 3400 ml Balance -800 ml 2057 ml Intake Oral 400 ml 2410 ml IV Total 3047 ml Output Urine Total 1200 ml 3400 ml # Voids 3 # Bowel Movements 0 General: Alert, Oriented X3 Lungs: Crackles (bases) Heart: Regular Rate/Rhythm Abdomen: Benign, Soft, Non-tender, Non-distended, Other (passing flatus) Extremities: Thigh&Calf Soft/Nontender Neuro: Cranial Nerves 2-12 nl Catheters: None Result Diagram: 11/17/1651611/17/16516 Diagnostics: CT abdomen and pelvis without contrast 11/15/15 IMPRESSION: 1. Mild aneurysmal dilatation of the infrarenal abdominal aorta. Annual sonographic surveillance is recommended. No evidence of aortic dissection. 2. Incompletely visualized inflammatory process within the pelvis, possibly representing diverticulitis. There is a small amount of possible loculated pneumoperitoneum within the posterosuperior pelvis. Findings discussed with Letty on 11.15.16 at 1555 hrs. 3. Mildly distended small bowel loops and small bowel thickening, consistent with gastroenteritis versus ileus. 4. Splenic cyst. 5. 5 mm diameter lingular nodule; followup is recommended as below Assessment & Plan Impression Primary diagnosis: Diverticulitis. HD #3, improved with IV antibiotics, transitioned to PO Levaquin and Flagyl to complete a 10 day course Thrombocytopenia platelets 115 Other diagnoses: 1. Kidney stones 2. Infrarenal AAA 3 cm 3. CHF 4. HTN 5. Daily cigarette smoker 6. GERD Problems: Plan Patient should be checked for HIV status and hepatitis C Patient may be discharged home on antibiotics. Pain Management: Tylenol VTE Prophylaxis: Sub-Q Enoxaparin Resuscitation Status: CPR: Attempt Resuscitation Sridevi Martini PA-C Nov 18, 2016 09:44
--- NOTE | 2016-11-18 11:20 | PCM.DIMED ---
Discharge Instructions Date of Service Nov 18, 2016 Dates of Hospitalization Nov 16, 2016 at 00:51 Discharge Diagnosis Discharge Diagnosis Diverticulitis Diet Heart Healthy Activity No restrictions (May resume usual activity gradually as tolerated) Call your provider Fever or Chills, Shortness of breath, Bleeding, Chest pain, Vomitting, Excessive diarrhea, Weakness (unilateral), Other Patient Instructions Follow-up Provider: [facility] Follow-up with PCP in: 1 week (Patient will need referral to GI or surgery for a future colonoscopy once recovered) Balaji Echols MD Nov 18, 2016 11:20
[2016-11-18] MEDS ORDERED: METR500T PO (11:22)
[2016-11-18] MEDS ORDERED: NICO1PAT6 TOPICAL (11:22)
[2016-11-18] MEDS ORDERED: LEVO500T16 PO (11:22)
--- NOTE | 2016-11-18 13:54 | NUR ---
Discharge Patient left floor at [address] home. IV d/c'd intact. All d/c information discussed and understood by patient including medications and follow up appointments. Prescriptions electronically sent to [facility] in [place], patient aware. All belongings left with patient.
--- NOTE | 2016-11-19 00:15 | PCM.DC.MED ---
Discharge Summary Date of Service Nov 18, 2016 Dates of Hospitalization Date of Hospital Admission Nov 16, 2016 at 00:51 Date of Discharge: Nov 18, 2016 Providers: Admitting Physician: Madhav Mcdonald MD Primary Care Physician: Deysi Attending Physician: Madhav Mcdonald MD Diagnosis at Time of Discharge Diagnosis at Time of Discharge Diverticulitis Brief History 56-year-old male with stabbing midline lower abdominal pain monday, may have started w/spirolactone, worse this am, associated diarrhea, with lightheadedness and hypotension yesterday 68/52 at home. Recent new medications for CHF. Diarrhea last week associated with right lower quadrant pains. entresto new yesterday caused him lightheadness. chills and cold sweats yesterday. no colonoscopy hx. no bloody stool. baseline at home 130s/90s. currently dull ache midline lower abdominal pain radiates to RLQ. associated near syncope. In the ER, T 38.1, HR 107, WBC 13, Zosyn morphine 2 L normal saline. Patient was admitted to the hospital service for further evaluation and treatment. Hospital Course [id number] with MHx significant for HTN and CHF developed 3days of worsening lower quadrant abdominal pain, hypotension with diarrhea, found to have diverticulitis with possible microperforation. He was admitted for sepsis. Sepsis due to microperforation lower abdominal. resolved - Tachycardic with elevated temp and WBC, likely diverticulitis - Fluid resuscitate and abx given. Lactic acid essentially normal. - Resolved at this point. Diverticulitis microperforation, present on admission, improving - Currently on Zosyn, will transition to Flagyl and and Levaquin on 11/17 - Concerns for abscess formation. consider discharge 11/18. - surgery is following - pain control with morphine Hypotension, present on admission, active - Multifactorial: multiple new CHF medications, dehydration. - Hold Lasix/spirolactone/coreg - IV fluids Heart failure with Reduced EF, present on admission, stable - Recent EF 25% - Recently started spironolactone, in addition to taking carvedilol, losartan, and lasix. This may contribute to hypotension - Conservative with fluids. Received ~2-3L fluids for sepsis - Will reconsider meds if SBP maintains >110 AAA 3 cm infrarenal, present on admission, stable - Incidental finding on CT. - Recommend follow-up with PCP Smoker, present on admission, stable - Nicotine patch Dyspepsia, present on admission, stable - Famotidine Disposition inpatient: Stable for discharge on oral Levaquin and Flagyl to complete a 10-14 day course. Exam Vital Signs (Last) Date Time Temp Pulse Resp B/P Pulse Ox O2 Delivery O2 Flow Rate FiO2 11/18/16 08:00 98 11/18/16 05:37 36.4 16 137/86 97 Room Air Exam Enteral: Patient is ambulating in the hallway and room he is in no apparent distress. He is in no pain. HEENT: Head is atraumatic normocephalic. Eyes: Pupils are equally round and reactive to light and accommodation. Extraocular muscles are intact. Sclera are white anicteric. Subconjunctival mucosa is pink. Ears and nose are unremarkable. Oropharynx: There is no mucosal lesions, there is no thrush, there is no pharyngitis. Neck: Is supple, there are no nodes, or masses or tenderness. Chest: Is clear to auscultation and percussion. There are no rales, rhonchi, wheezes or rubs. Heart: Rate, rhythm is regular. There is no murmur, rub or gallop. Abdomen: Good bowel sounds are present. Abdomen is soft, nontender, no organomegaly or masses were appreciated. Extremities: Are symmetrical and well perfused. There is no edema, there is no cellulitis, no rash. Neurologic: There are no focal neurological deficits. Cranial nerves II through XII are intact. There are no sensory or motor deficits. Psychiatric: Patients mood is calm and shows no sign of agitation. Genital: Deferred Rectal: Deferred Test 11/15/16 11:17 11/15/16 13:55 11/16/16 08:30 11/17/16 05:17 Lactic Acid Level 1.2mmol/L (0.4-2.0) Magnesium Level 2.1mg/dL (1.6-2.6) Direct Bilirubin 0.2mg/dL (0.0-0.3) Lipase 17U/L (13-60) Hold Al Top Tube Received (Received) Urine Color Dark yellow (YELLOW) Urine Appearance Clear (CLEAR,HAZY) Urine pH 5.5 (5.0-8.0) Urine Specific [place] 1.025 (1.003-1.035) Urine Protein 30mg/dL (NEG,TRACE) Urine Glucose (UA) Negativemg/dL (NEGATIVE) Urine Ketones Negativemg/dL (NEGATIVE) Urine Occult Blood Negative (NEGATIVE) Urine Nitrite Negative (NEGATIVE) Urine Bilirubin Negative (NEGATIVE) Urine Urobilinogen Normalmg/dL (NORMAL) Urine Leukocyte Esterase Negative (NEGATIVE) Hold Urine Received (Received) Neutrophils (%) (Auto) 92.6% (40-74) Lymphocytes (%) (Auto) 3.7% (14-46) Monocytes (%) (Auto) 2.7% (4-12) Eosinophils (%) (Auto) 0.7% (0-5) Basophils (%) (Auto) 0.1% (0-3) Total Bilirubin 1.2mg/dL (0.0-1.2) Aspartate Amino Transf (AST/SGOT) 9U/L (0-50) Alanine Aminotransferase (ALT/SGPT) 10U/L (0-44) Alkaline Phosphatase 57U/L (25-150) Troponin T < 0.010ug/L (0.0-0.011) Total Protein 5.5g/dL (6.4-8.4) Albumin 3.4g/dL (3.4-5.0) White Blood Count 6.0th/mm3 (3.8-10.1) Red Blood Count 2.99mil/mm3 (4.40-5.80) Hemoglobin 9.9g/dL (13.8-17.2) Hematocrit 29.4% (41.0-50.0) Mean Corpuscular Volume 98.3fL (81-100) Mean Corpuscular Hemoglobin 33.1pg (27.0-35.0) Mean Corpuscular Hemoglobin Concent 33.7% (32.0-37.0) Red Cell Distribution Width 15.1% (12.3-15.4) Platelet Count 115bil/L (150-400) Sodium Level 137mEq/L (134-144) Potassium Level 3.8mEq/L (3.5-5.2) Chloride Level 103mEq/L (97-108) Carbon Dioxide Level 24mmol/L (18-29) Blood Urea Nitrogen 9mg/dL (6-24) Creatinine 0.79mg/dL (0.76-1.27) Estimat Glomerular Filtration Rate 107mL/min (>59) Glucose Level 106mg/dL (60-99) Calcium Level 8.2mg/dL (8.5-10.1) Discharge Medications Discharge Medications Carvedilol (Carvedilol) 6.25 Mg Tablet 6.25 MG PO BID (Reported) Furosemide (Furosemide) 40 Mg/4 Ml Solution 40 MG PO DAILY (Reported) Levofloxacin (Levaquin) 500 Mg Tablet 500 MG PO DAILYAC Prescribed by: RACHEAL ECHOLS MD Losartan Potassium (Losartan Potassium) 50 Mg Tablet 50 MG PO DAILY (Reported) Metronidazole (Flagyl) 500 Mg Tablet 500 MG PO Q8 Prescribed by: RACHEAL ECHOLS MD As needed Nicotine 21 mg/24 hr Patch (Nicotine 21 mg/24 hr Patch) 1 Each Patch.td24 1 PATCH TOPICAL DAILY PRN PRN urge Prescribed by: RACHEAL ECHOLS MD Followup Plan Disposition: Patient is being discharged home. Discharge Diet: Heart Healthy Discharge Activity: No restrictions (May resume usual activity gradually as tolerated) Follow-up Provider: [facility] Follow-up with PCP in: 1 week (Patient will need referral to GI or surgery for a future colonoscopy once recovered) Time spent Time spent on discharging this patient was greater than 35 minutes, over half of which was involved in counseling and coordination of care. Balaji Echols MD Nov 19, 2016 00:14
[2016-12-28] MEDS ORDERED: SPIR25TA3 PO (17:17)
[2016-12-28] MEDS ORDERED: MULT1CAP33 PO (17:17)
[2016-12-28] MEDS ORDERED: RANI150C4 PO (17:17)
== END 2016-11-18 13:45 | disposition home or self-care (01) | DRG 244 ==
LOC: SED 10:51 → OFED 11-16 00:51 → MOC 11-16 09:04
PROVIDERS: ADMIT Urology; ATTEND Urology
DX: K57.80 Diverticulitis of intestine, part unspecified, with perforation and abscess without bleeding (principal); I95.9 Hypotension, unspecified; I50.20 Unspecified systolic (congestive) heart failure; T50.0X5A Adverse effect of mineralocorticoids and their antagonists, initial encounter; I71.4 Abdominal aortic aneurysm, without rupture; F17.210 Nicotine dependence, cigarettes, uncomplicated

== ENCOUNTER 2016-12-29 00:28 | Day surgery (SDC) | payer OTHER ==
[~2016-12-29] VITALS: Ht 172.7 cm; Wt 76.6 kg
[2016-12-29] VITALS (20 sets, daily range): BP systolic 118–137; BP diastolic 66–95; PULSE 68–86; RESP 14–22; O2SAT 92–98
[~2016-12-29 00:28] MED LIST: CARV6.252 PO; FURO40SO4 PO; LOSA50TA37 PO; MULT1CAP33 PO; RANI150C4 PO; SPIR25TA3 PO
[2016-12-29] MEDS ORDERED: 0.9% Sodium Chloride 1,000 ML ONE ×2 (10:43→14:01)
[2016-12-29] MEDS ORDERED: Heparin 1,000 Units/500 mL NS Premix IV ONE (14:01)
[2016-12-29] MEDS ORDERED: fentaNYL-PF 50 mCg/mL 2 mL Inj ONE (14:21)
[2016-12-29] MEDS ORDERED: HYDROcodone-APAP 5-325 mg Tablet PO PRN (14:55)
[2016-12-29] MEDS ORDERED: Atropine 1 mg/10 mL (Code) Syringe IVPUSH PRN (14:55)
[2016-12-29] MEDS ORDERED: 0.9% Sodium Chloride 1,000 ML IV SCH (14:55)
[2016-12-29] MEDS ORDERED: Ondansetron 2 mg/mL 2 mL Inj IVPUSH PRN (14:55)
--- NOTE | 2016-12-29 15:25 | PCM.CVCATH ---
Cardiac Cath Report Date of Service Dec 29, 2016 Primary Indication Severe cardiomyopathy. EF 25%. Patient is here to find out if his cardiomyopathy is ischemic related. Procedure 1. Left heart catheterization 2. Selective coronary angiogram 3. Left ventricular angiogram 4. Right femoral angiogram Procedure Details The patient was brought into the catheterization laboratory. The patient was nothing by mouth since midnight. The patient was prepped and sterilized in the appropriate fashion. Local anesthetic was given to the right groin region with lidocaine 1%. A percutaneous stick to the right groin region with an 18-gauge Seldinger needle was attempted. A 5 Sammarinese sheath was inserted into the right femoral artery. A 5 Sammarinese FL 4 diagnostic catheter was advanced and engaged into the left main. The left coronary angiography was performed in multiple views. The catheter was exchanged over the wire for a 5 [place]ammar[place] FR4 diagnostic catheter. The catheter was engaged in the right coronary ostium and the right coronary angiography was performed in multiple views. The catheter was removed over the wire and exchanged for 5 Sammarinese angle pigtail catheter. LV hemodynamics were recorded. Left ventricular angiography was performed at 12 mL /s for total 36 mL of contrast. LV pullback was performed. All catheters were removed. The right femoral angiogram was performed to evaluate for closure device. Hemostasis was obtained with Exoseal. The patient was transferred back to special observation unit for post procedural monitoring. There were no immediate complications. Total fluoroscopy time: 2.4 minutes Total fluoroscopy dosage: 475 mGy Estimated blood loss: 10 mL Total contrast: 70 mL Findings 1. Hemodynamics: The left ventricular systolic pressure was estimated at 146 mmHg and the left ventricular end-diastolic pressure was estimated at 15 mmHg. There is no significant gradient during pullback. The aortic systemic pressure was 145/82 mmHg. 2. Selective coronary angiography: A. Left main: There artery has no evidence of significant disease. It bifurcates into the left anterior and left circumflex arteries. B. Left anterior descending artery: The proximal LAD has a 50% eccentric stenosis. In the midportion there appears to be a small aneurysmal dilatation at the ostium of a diagonal artery. Otherwise there is excellent coronary flow throughout the entire vessel. The artery itself reaches the apex. C. Left circumflex artery: This is a nondominant artery. Provides two large obtuse marginal arteries. None of these have any significant disease. D. Right coronary artery: This is a dominant vessel. There are only mild luminal irregularities throughout the entire vessel. 3. Left ventricular angiogram: The ejection fraction is around 27%. There is essentially global hypokinesis. The left ventricular end-diastolic volume is 286 mL and the left ventricular end -systolic volume is 206 mL. Cardiac output is 6.9 L/min and the cardiac index is 3.6 L/min/m. 4. Right femoral angiogram: There is mild disease at the ostium of the profunda artery. Summary 1. Severely reduced LV ejection fraction with significant dilatation. 2. 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 3. Elsewhere there are no evidence of significant coronary artery disease. 4. LVEDP high normal. Recommendations Patient's coronary findings would not explain patient's severe global hypokinesis and severely reduced LV ejection fraction. We will continue with aggressive medical therapy over the next 1-2 months and repeat an echocardiogram. If his ejection fraction does not improve be on 35% and the patient will be referred to Dr. Lara for AICD. Leeroy Guzmán MD Dec 29, 2016 15:25
--- NOTE | 2016-12-29 18:23 | NUR ---
[facility] Admit patient to [facility] bed 6 at 1200 for heart cath. No family at bedside but patient states family member available for transport home. Patient denies pain. HL placed x 2. Labs available and consent confirmed. History and medications reviewed. Patient reports a groin rash. MD notified to evaluate. Pre-procedure teaching done and questions answered. Patient return from slab off mill tender at 1500. No intervention. No bleeding or hematoma at right groin site. Pedal pulses present. Continues to deny pain. 2.5 hours strict bedrest. Prior to discharge ambulatory, taking PO and void. Instructions reviewed with patient and family member, written information given and questions answered. Home with uncle at 1815.
== END 2016-12-29 23:59 | disposition home or self-care (01) ==
LOC: SOUO 00:28
PROVIDERS: ATTEND Internal Medicine Cardiovascular Disease
DX: I42.0 Dilated cardiomyopathy (principal); I51.7 Cardiomegaly; I25.10 Atherosclerotic heart disease of native coronary artery without angina pectoris; I25.41 Coronary artery aneurysm; I50.20 Unspecified systolic (congestive) heart failure; I10 Essential (primary) hypertension; Z72.0 Tobacco use
CPT/HCPCS: 93458; 99152; C1769; J1200; J1644; J2060; J2250; J3010; J7030